=== PATIENT | male | born 1945 | race Caucasian/White ===

== ENCOUNTER → 2017-11-01 | Outpatient (CLI) | payer MEDICARE, BC | END | disposition home or self-care (01) | LOC: ECHO 11:03 | DX: I08.3 Combined rheumatic disorders of mitral, aortic and tricuspid valves (principal) | CPT/HCPCS: 93306 ==

== ENCOUNTER → 2019-11-05 | Outpatient (CLI) | payer MEDICARE, BC ==
[2016-01-28 14:52] VITALS: BP 151/73
[~2019-11-05] MED LIST: ACET325T9 PO; ASPI-482 PO; ATOR10TA60 PO; BYSTOLIC10 MG PO; CARV3.1210 PO; GLUC1TAB68 PO; LISI-130 PO; METF850T8 PO; OMEG1CAP6 PO; OMEP20CA16 PO; VITA1TAB19 PO
--- NOTE | 2019-11-05 10:51 | CARD ---
MR#: [id number] Date of Study: 11/05/2019 Ordering Physician: JERILYN BRISCOE, Referring Physician: JERILYN BRISCOE, Tech: Jazz Fuentes APPROVED REPORT EXAM: Two-dimensional and M-mode echocardiogram with Doppler and color Doppler. Other Information Quality : AverageHR: 57bpm INDICATION Arrhythmia RISK FACTORS Hypertension Hyperlipidemia 2D DIMENSIONS RVDd3.1 (2.9-3.5cm)Left Atrium(2D)3.1 (1.6-4.0cm) IVSd1.2 (0.7-1.1cm)Aortic Root(2D)3.4 (2.0-3.7cm) LVDd5.5 (3.9-5.9cm)LVOT Diameter2.1 (1.8-2.4cm) PWd1.2 (0.7-1.1cm)LVDs3.5 (2.5-4.0cm) FS (%) 36.2 %SV95.9 ml LVEF(%)65.2 (>50%) Aortic Valve AoV Peak Noel.128.0cm/sAoV VTI23.5cm AO Peak GR.6.6mmHgLVOT Peak Noel.111.5cm/s LVOT VTI 20.54cmAO Mean GR.3mmHg EFRA (VMAX)2.18oa5QAF (VTI)2.93cm2 AI P 1/2 Svmb7115or Mitral Valve MV E Kjnnidxx92.2cm/sMV DECEL JJEY572ka MV A Ehettuvo87.0cm/sMV ACO25en E/A Ratio1.0MVA (PHT)3.35cm2 TDI E/Lateral E'6.6E/Medial E'10.1 Pulmonary Valve PV Peak Darmvnya030.1cm/sPV Peak Grad.4mmHg Tricuspid Valve TR P. Wgxcfojt651xt/sRAP TUUZWWZM7amLl TR Peak Gr.59euYgNBUC47utDg Pulmonary Vein S1 Fefnnyjk40.5cm/sD2 Wjttnbpj52.7cm/s PVa gukoihfh766xxks LEFT VENTRICLE The left ventricle is normal size. There is mild concentric left ventricular hypertrophy. The left ve ntricular systolic function is normal. The Ejection Fraction is 55-60%. There is normal LV segmental wall motion. Transmitral Doppler flow pattern is Grade I-abnormal relaxation pattern. RIGHT VENTRICLE The right ventricle is normal size. There is normal right ventricular wall thickness. The right ventr icular systolic function is normal. ATRIA The left atrium size is normal. The right atrium size is normal. The interatrial septum is intact wit h no evidence for an atrial septal defect or patent foramen ovale as noted on 2-D or Doppler imaging. AORTIC VALVE The aortic valve is thickened but opens well. Doppler and Color Flow revealed trace aortic regurgitat ion. There is no significant aortic valvular stenosis. MITRAL VALVE The mitral valve is normal in structure and function. There is no evidence of mitral valve prolapse. There is no mitral valve stenosis. Doppler and Color-flow revealed trace mitral regurgitation. TRICUSPID VALVE The tricuspid valve is normal in structure and function. Doppler and Color Flow revealed trace tricus pid regurgitation with an estimated PAP of 25 mmHg. There is no tricuspid valve stenosis. PULMONIC VALVE The pulmonic valve is not well visualized. Doppler and Color Flow revealed no pulmonic valvular regur gitation. GREAT VESSELS The aortic root is normal in size. The IVC is normal in size and collapses >50% with inspiration. PERICARDIAL EFFUSION There is no evidence of significant pericardial effusion. Critical Notification Critical Value: No <Conclusion> The left ventricular systolic function is normal. The Ejection Fraction is 55-60%. There is normal LV segmental wall motion. Trace mitral regurgitation. Trace tricuspid regurgitation with an estimated PAP of 25 mmHg. There is no evidence of significant pericardial effusion. Signed by : Jerilyn Briscoe, Electronically Approved : 11/05/2019 10:50:59
== END | disposition home or self-care (01) ==
LOC: ECHO 07:37
PROVIDERS: ATTEND Internal Medicine Cardiovascular Disease
DX: I11.9 Hypertensive heart disease without heart failure (principal); E78.5 Hyperlipidemia, unspecified
CPT/HCPCS: 93306

== ENCOUNTER → 2020-11-03 | Outpatient (CLI) | payer MEDICARE, BC ==
[2016-01-28 14:52] VITALS: BP 151/73
[~2020-11-03] MED LIST changes: +REGADENOSON 0.4 MG/5 ML DISP.SYRIN. IV ONE
--- NOTE | 2020-11-03 16:37 | CARD ---
MR#: [id number] Date of Study: 11/03/2020 Ordering Physician: JERILYN GARCIA, Referring Physician: JERILYN GARCIA, Tech: Jazz Fuentes APPROVED REPORT EXAM: Two-dimensional and M-mode echocardiogram with Doppler and color Doppler. Other Information Quality : AverageHR: 55bpm INDICATION Syncope RISK FACTORS Hypertension 2D DIMENSIONS RVDd3.6 (2.9-3.5cm)Left Atrium(2D)3.5 (1.6-4.0cm) IVSd1.2 (0.7-1.1cm)Aortic Root(2D)3.5 (2.0-3.7cm) LVDd4.9 (3.9-5.9cm)LVOT Diameter2.1 (1.8-2.4cm) PWd1.1 (0.7-1.1cm)LVDs2.4 (2.5-4.0cm) FS (%) 50.8 %SV92.5 ml Aortic Valve AoV Peak Noel.145.0cm/sAoV VTI29.5cm AO Peak GR.8.4mmHgLVOT Peak Noel.110.7cm/s LVOT VTI 24.41cmAO Mean GR.4mmHg EFRA (VMAX)1.52za3BMM (VTI)2.76cm2 AI P 1/2 Wikf804dh Mitral Valve MV E Wotkqllz84.4cm/sMV DECEL ZLIN226nc MV A Drmqhame57.5cm/sMV FZH50kp E/A Ratio1.3MVA (PHT)3.51cm2 TDI E/Lateral E'9.0E/Medial E'11.8 Pulmonary Valve PV Peak Igtommxb04.1cm/sPV Peak Grad.4mmHg Tricuspid Valve TR P. Onsmsqdq645yg/sRAP COJRWDFP9xrOt TR Peak Gr.03ekRfMABN20ypLb Pulmonary Vein S1 Bkgmzxgc15.1cm/sD2 Kesdtjgp86.7cm/s PVa xadigpey471phhu LEFT VENTRICLE The left ventricle is normal size. There is mild concentric left ventricular hypertrophy. The left ve ntricular systolic function is normal and the ejection fraction is within normal range. The Ejection Fraction is 60-65%. There is normal LV segmental wall motion. Transmitral Doppler flow pattern is Gra de II-pseudonormal filling dynamics. RIGHT VENTRICLE The right ventricle is normal size. There is normal right ventricular wall thickness. The right ventr icular systolic function is normal. ATRIA The left atrium is borderline dilated. The right atrium size is normal. The interatrial septum is int act with no evidence for an atrial septal defect or patent foramen ovale as noted on 2-D or Doppler i maging. AORTIC VALVE The aortic valve is thickened but opens well. Doppler and Color Flow revealed trace aortic regurgitat ion. There is no significant aortic valvular stenosis. MITRAL VALVE The mitral valve is normal in structure and function. There is no evidence of mitral valve prolapse. There is no mitral valve stenosis. Doppler and Color-flow revealed trace mitral regurgitation. TRICUSPID VALVE The tricuspid valve is normal in structure and function. Doppler and Color Flow revealed trace tricus pid regurgitation with an estimated PAP of 25 mmHg. There is no tricuspid valve stenosis. PULMONIC VALVE The pulmonic valve is not well visualized. Doppler and Color Flow revealed trace pulmonic valvular re gurgitation. GREAT VESSELS The aortic root is normal in size. The ascending aorta is normal in size. The IVC is normal in size a nd collapses >50% with inspiration. PERICARDIAL EFFUSION There is no evidence of significant pericardial effusion. Critical Notification Critical Value: No <Conclusion> The left ventricle is normal size. The left ventricular systolic function is normal and the ejection fraction is within normal range. The Ejection Fraction is 60-65%. There is mild concentric left ventricular hypertrophy. Doppler and Color Flow revealed trace aortic regurgitation. There is no significant aortic valvular stenosis. Doppler and Color-flow revealed trace mitral regurgitation. Doppler and Color Flow revealed trace tricuspid regurgitation with an estimated PAP of 25 mmHg. Signed by : Ramses Lutz MD Electronically Approved : 11/03/2020 16:36:49
--- NOTE | 2020-11-05 18:53 | RAD ---
MR#: [id number] Date of Study: 11/03/2020 Ordering Physician: JERILYN GARCIA, Referring Physician: SHELL CARLTON Tech: TAMIR Hogan ARRT (R) (N) APPROVED REPORT Test Type: Pharmacological Stress Nurse/Tech: Bindu Velásquez RN Test Indications: CAD Cardiac History: CAD, HTN, Cardiac Cath, See EMR. Medications: See EMR. Medical History: See EMR. Resting ECG: SR Resting Heart Rate: 58 bpm Resting Blood Pressure: 148/71mmHg Pretest Chest Pain: No chest pain Nurse/Tech Notes Lungs CTA, Heart tones regular. Consent: The procedure was explained to the patient in lay terms. Informed consent was witnessed. Dayne eout was entered into [employer]. History and Stress Test performed by RT Jaret (R) (N) Pharm. Details Pharmacologic stress testing was performed using 0.4mg per 5ml of regadenoson given intravenously ove r 7-10 seconds. Stress Symptoms No chest pain or symptoms. POST EXERCISE Reason for Termination: Infusion complete Max HR: 80 bpm Max Blood Pressure: 156/70mmHg Blood Pressure response to exercise: Normal blood pressure response during stress. Heart Rate response to exercise: WNL Chest Pain: No. Arrhythmia: No. ST Change: No. INTERPRETATION Stress EKG Conclusion: The resting EKG showed a sinus rhythm, left ventricular hypertrophy and T wave inversion. The stress EKG shows no significant changes from baseline. Abnormal baseline EKG but no EKG evidence of stress-induced ischemia. Imaging Protocol IMAGE PROTOCOL: Rest Tc-99m/stress Tc-99m 1 day Rest: Stress: Viability: Radiopharm.Tc99m JsamkzkhlJa16s Sestamibi Rqwm04xXz 32mCi Img Date 11/03/2020 11/03/2020 Inj-Img Ozah89nmu. 60min. Rest Admin Site:IV - Left ForearmAdministrator:TAMIR Hogan, SRINIVAS (R)(N) Stress Admin Site: IV - Left ForearmAdministrator: RT Della Raygoza)(N) STRESS DATA End Diast. Vol.90.0mlLVEDV index BSA46.0ml End Syst. Vol.36.0mlLVESV index BSA18.0ml Myocardial Wijw125.0gEject. Lucfeqwk77.0% Stress Scores Regional WT0.00Summed WT10.00 Regional WM0.00Summed WM13.00 LV Perfusion The stress images show an inferior defect. The rest images show an inferior defect. Nuclear imaging shows no evidence of significant reversible ischemia. Nuclear images show a fixed inferior defect consistent a possible diaphragmatic attenuation defect or previous infarct. Wall Motion Ventricular systolic function is normal with no regional wall motion abnormalities and an ejection fr action of 66%. LV Perf. Quant 17 Seg. SSS7.00 17 Seg. SRS5.00 17 Seg. SDS2.00 Stress Defect Extent (% LAD)0.00Rest Defect Extent (% LAD)0.00Rev. Defect Extent (% LAD)0.00 Stress Defect Extent (% LCX) 42.50Rest Defect Extent (% LCX)22.50Rev. Defect Extent (% LCX)1.30 Stress Defect Extent (% RCA)0.00Rest Defect Extent (% RCA)0.00Rev. Defect Extent (% RCA)0.00 Stress Defect Extent (% JOSE M)7.40Rest Defect Extent (% JOSE M)5.40Rev. Defect Extent (% JOSE M)0.20 IMPRESSION LV Viability Summary: Significantly viable myocardium, Potentially viable myocardium, Non-viable myoc ardium Conclusion 1. Baseline abnormal EKG but no EKG evidence of stress-induced ischemia. 2. Nuclear imaging shows no significant reversible ischemia. 3. Nuclear imaging shows a fixed inferior wall defect suggestive of diaphragmatic attenuation but a s mall infarct cannot be entirely excluded. 4. Left ventricular systolic function is intact with no regional wall motion abnormalities, an ejecti on fraction of 66% and a TID of 0.94. 5. Moderate to moderately low risk Lexiscan nuclear stress test. Signed by : Ramses Lutz MD Electronically Approved : 11/05/2020 18:53:20
== END ==
LOC: NM 08:29
PROVIDERS: ATTEND Internal Medicine Cardiovascular Disease
DX: I51.7 Cardiomegaly (principal); R55 Syncope and collapse; I49.9 Cardiac arrhythmia, unspecified
CPT/HCPCS: 78452; 93017; 93306; A9500; J2785

== ENCOUNTER → 2021-11-11 | Outpatient (CLI) | payer MEDICARE, BC ==
[2016-01-28 14:52] VITALS: BP 151/73
[~2021-11-11] MED LIST changes: -REGADENOSON 0.4 MG/5 ML DISP.SYRIN. IV ONE
--- NOTE | 2021-11-11 16:57 | CARD ---
MR#: [id number] Date of Study: 11/11/2021 Ordering Physician: JERILYN BRISCOE, Referring Physician: JERILYN BRISCOE, Tech: Jazz Fuentes, [facility] APPROVED REPORT EXAM: Two-dimensional and M-mode echocardiogram with Doppler and color Doppler. Other Information Quality : AverageHR: 57bpm INDICATION Syncope RISK FACTORS Hypertension 2D DIMENSIONS Left Atrium(2D)3.9 (1.6-4.0cm)IVSd1.2 (0.7-1.1cm) Aortic Root(2D)3.8 (2.0-3.7cm)LVDd5.3 (3.9-5.9cm) LVOT Diameter2.1 (1.8-2.4cm)PWd1.2 (0.7-1.1cm) LVDs3.2 (2.5-4.0cm)FS (%) 39.7 % SV92.8 mlLVEF(%)69.8 (>50%) Aortic Valve AoV Peak Noel.167.3cm/sAoV VTI34.5cm AO Peak GR.11.2mmHgLVOT Peak Noel.114.2cm/s LVOT VTI 25.34cmAO Mean GR.6mmHg EFRA (VMAX)1.33hw4FVV (VTI)2.51cm2 AI P 1/2 Wcgu566br Mitral Valve MV E Huoiqzpf88.8cm/sMV DECEL XKBR966yb MV A Chttsfwi12.8cm/sMV E Mean Gr.1mmHg MV UGA32ktQ/A Ratio1.1 MVA (PHT)4.04cm2 TDI E/Lateral E'8.2E/Medial E'10.0 Pulmonary Valve PV Peak Ysosomcx13.8cm/sPV Peak Grad.4mmHg Tricuspid Valve TR P. Apiqxxqw497od/sRAP INXKYXEZ4bhHo TR Peak Gr.38eyLmYIBG43ffSl Pulmonary Vein S1 Nqmmxwkb67.7cm/sD2 Nvymuvyk35.7cm/s PVa rnmztunu799bvrs LEFT VENTRICLE The left ventricle is normal size. There is mild concentric left ventricular hypertrophy. The left ve ntricular systolic function is normal. The Ejection Fraction is 60-65%. There is normal LV segmental wall motion. Transmitral Doppler flow pattern is Grade II-pseudonormal filling dynamics. RIGHT VENTRICLE The right ventricle is borderline dilated. There is normal right ventricular wall thickness. The righ t ventricular systolic function is normal. ATRIA The left atrium is borderline dilated. The right atrium size is normal. The interatrial septum is int act with no evidence for an atrial septal defect or patent foramen ovale as noted on 2-D or Doppler i maging. AORTIC VALVE The aortic valve is thickened but opens well. Doppler and Color Flow revealed trace to mild aortic re gurgitation. There is no significant aortic valvular stenosis. Calculated aortic valve area is 2.53 c m2 with maximum pressure gradient of 13 mmHg and mean pressure gradient of 7 mmHg. MITRAL VALVE The mitral valve is normal in structure and function. There is no evidence of mitral valve prolapse. There is no mitral valve stenosis. Doppler and Color-flow revealed trace mitral regurgitation. TRICUSPID VALVE The tricuspid valve is normal in structure and function. Doppler and Color Flow revealed trace tricus pid regurgitation with an estimated PAP of 25 mmHg. There is no tricuspid valve stenosis. PULMONIC VALVE The pulmonic valve is not well visualized. Doppler and Color Flow revealed trace pulmonic valvular re gurgitation. GREAT VESSELS The aortic root is mildly enlarged measuring 3.8 cm. The IVC is normal in size and collapses >50% wit h inspiration. PERICARDIAL EFFUSION There is no evidence of significant pericardial effusion. Critical Notification Critical Value: No <Conclusion> The left ventricular systolic function is normal. The Ejection Fraction is 60-65%. There is normal LV segmental wall motion. Trace mitral regurgitation. Trace tricuspid regurgitation with an estimated PAP of 25 mmHg. There is no evidence of significant pericardial effusion. Signed by : Jerilyn Briscoe, Electronically Approved : 11/11/2021 16:57:22
== END ==
LOC: ECHO 07:57
PROVIDERS: ATTEND Internal Medicine Cardiovascular Disease
DX: I35.1 Nonrheumatic aortic (valve) insufficiency (principal); I51.7 Cardiomegaly; R55 Syncope and collapse
CPT/HCPCS: 93306